=== PATIENT | male | born 1940 | race Caucasian/White ===

== ENCOUNTER → 2016-06-26 | Outpatient (CLI) | payer MEDICARE, OTHER ==
[~2016-06-26] MED LIST: DOXA1TAB34 PO; LISI-515 PO; LISI10TA3 PO
[2016-06-26 14:39] LABS: AUTOMATED NEUTROPHIL # 5.3 TH/MM3 (1.8-7.7); BASOPHIL % 0.3 % (0.0-2.0); EOSINOPHIL # 0.3 TH/MM3 (0-0.4); EOSINOPHIL % 3.7 % (0.0-4.0); HEMATOCRIT 42.6 % (39.0-51.0); HEMO FLAGS DIFF FINAL; LYMPH % 24.5 % (9.0-44.0); LYMPHOCYTE # 2.1 TH/MM3 (1.0-4.8); MEAN CELL VOLUME 88.9 FL (80.0-100.0); MEAN CORPUSCULAR HEMOGLOBIN 30.2 PG (27.0-34.0); MONO % 9.7 % (0.0-8.0); NEUT % 61.8 % (16.0-70.0); PLATELET COUNT 177 TH/MM3 (150-450); RED BLOOD COUNT 4.79 MIL/MM3 (4.50-5.90); RED CELL DISTRIBUTION WIDTH 14.1 % (11.6-17.2); WHITE BLOOD COUNT 8.6 TH/MM3 (4.0-11.0)
--- NOTE | 2016-06-27 17:12 | EKG ---
Date Performed: 06/26/2016 Time Performed: 13:12:08 PTAGE: 76 years EKG: Sinus rhythm INFERIOR MYOCARDIAL INFARCTION, PROBABLY OLD ABNORMAL ECG NO PREVIOUS TRACING DOCTOR: Bhupendra Gonzalez Interpretating Date/Time 06/27/2016 17:07:16
== END ==
LOC: CPRE 12:40
PROVIDERS: ATTEND Ophthalmology
DX: Z01.810 Encounter for preprocedural cardiovascular examination (principal); Z01.812 Encounter for preprocedural laboratory examination; H25.811 Combined forms of age-related cataract, right eye; R94.31 Abnormal electrocardiogram [ECG] [EKG]
CPT/HCPCS: 36415; 85025; 93005

== ENCOUNTER → 2016-07-17 | Day surgery (SDC) | payer MEDICARE, OTHER ==
--- NOTE | 2016-06-29 08:49 | MH ---
cc: FERMIN WHITLEY DATE OF ADMISSION: 07/17/2016 ADMISSION DIAGNOSIS Cataract, right eye. HISTORY OF PRESENT ILLNESS This 76-year-old white male is coming through [facility] for the purpose of a lens extraction of the right eye with intraocular lens implant under general anesthesia. He has noticed decreasing visual acuity interfering with his daily activities and elected to have the above procedure. His best corrected visual acuity is 20/50 -1 in the right eye and 20/40 -2 in the left. PAST MEDICAL HISTORY 1. The patient has a history of claustrophobia which is the reason for his general anesthesia. 2. Hypertension. 3. Kidney stones. PAST SURGICAL HISTORY 1. Lithotripsy. 2. Inguinal hernia repair on the right side. 3. Skin cancer on the right leg. MEDICATION Daily medications: 1. Doxazosin. 2. Lisinopril. 3. Sleeping pill. 4. Aspirin 81 mg. 5. Latanoprost eye drops for chronic open angle glaucoma. He does have a history of Flomax use in the past. ALLERGIES The patient has no known allergies. SOCIAL HISTORY He does not smoke and drinks one or two alcoholic beverages a couple of days a week. FAMILY HISTORY Family history is positive for father with possible glaucoma and mother with macular degeneration. REVIEW OF SYSTEMS HEAD: Patient denies severe headaches, dizziness or recent head injury. EARS: Patient denies hearing loss, ear pain, discharge or ringing in the ears. NOSE: Patient denies nasal discharge, obstruction or frequent colds. MOUTH AND THROAT: Patient denies soreness of the mouth or tongue, bleeding gums, trouble swallowing, changes in voice or sore throat. NECK: Patient denies neck pain or swelling, limitation of neck movement or neck injury. CARDIOPULMONARY SYSTEM: Patient denies shortness of breath, orthopnea, chronic cough, sputum production, hemoptysis, chest pain, wheezing, palpitations or light-headedness. GI SYSTEM: Patient denies poor appetite, nausea, vomiting, abdominal pain, ulcers, or change in bowel habits. The patient does have hemorrhoids. SYSTEM: The patient does have urinary frequency day and night. No dysuria, change in urine color. NERVOUS SYSTEM: Patient denies convulsions, vertigo, stroke, numbness or weakness. PHYSICAL EXAMINATION VITAL SIGNS: Blood pressure 112/64, pulse 88, respirations 20. HEAD: Normocephalic, atraumatic. NOSE: Without rhinorrhea. THROAT: Clear. NECK: Supple. CHEST: Clear. HEART: Regular rhythm. ABDOMEN: Without tenderness. EXTREMITIES: Without edema. NEUROLOGIC: Within normal limits. MENTAL STATUS: Within normal limits. EYE EXAMINATION: The patient's best corrected visual acuity is 20/50 -1 in the right eye and 20/40 -2 in the left. Visual lira are full to confrontation testing. Extraocular muscle exam reveals full versions with exophoria at distance and near. Pupils are 2.5 mm equal, round, reactive to light without afferent defect. Anterior segment examination reveals corneal arcus and there is dermatochalasis of the eyelid skin. There are nuclear sclerotic and cortical cataract changes bilaterally. Intraocular pressure was 23 in the right eye and 21 in the left by applanation tonometry. Dilated fundus exam revealed sharp disks with cup-to-disk ratio 0.35 bilaterally. There is parafoveal glistening in the macula area of both eyes. A posterior vitreous detachment is present bilaterally. IMPRESSION 1. Bilateral cataracts. 2. Chronic open angle glaucoma - moderate, both eyes. 3. Posterior vitreous detachment, both eyes. PLAN The plan is lens extraction of the right eye with intraocular lens implant under general anesthesia through [facility] [place]. General anesthesia will be used due to the patient's claustrophobia. We will use iris retractors in this patient whose pupil does not dilate adequately. The patient has been cleared medically. He has been counseled as to the risks, benefits and alternatives and elected to proceed. I feel that cataract surgery will improve the quality of life and activities of daily living in this patient. MD JONAS Mitchell/PANCHITO /7:54 AM /8:17 AM
[~2016-07-17] VITALS: Ht 177.8 cm; Wt 91.0 kg
[~2016-07-17] MED LIST changes: +ACETAMINOPHEN 500 MG CPLT ONE; +ACETYLCHOLINE CHL OPHT SOLN 1:100 2 ML VIAL ONE; +CYCLOPENTOLATE HCL 1% OPHT SOLN 2 ML BTL ONE; +DICLOFENAC SOD 0.1% OPHT SOLN 2.5 ML BTL ONE; +EPINEPHrine HCL (1:1000) 1 MG/ML VIAL ONE; +FAMOTIDINE 20 MG/2 ML VIAL ONE; +GATIFLOXACIN 0.5% OPHT SOLN 2.5 ML BTL ONE; -LISI10TA3 PO; +MIDAZOLAM HCL 2 MG/2 ML VIAL ONE; +ONDANSETRON HCL 4 MG/2 ML VIAL IV PUSH ONE; +PHENYLEPH/NS 1000 MCG/10 ML SYR IV ONE; +PHENYLEPHRINE HCL 10 MG/ML VIAL IV ONE; +PHENYLEPHRINE HCL 2.5% OPTH SOLN 2 ML BTL ONE; +PROPARACAINE HCL 0.5% OPHT SOLN 15 ML BTL ONE; +SODIUM CHLOR 0.9% 250 ML INJ 250 ML IV ONE; +SODIUM CHLORID 0.9% 500 ML INJ 500 ML IV ONE; +SODIUM CHLORID 0.9% 500 ML INJ 500 ML ONE; +TOBRAMYCIN/DEXAMETHASONE OPTH OINT 3.5 GM TUBE RIGHT EYE ONE; +TROPICAMIDE 1% OPHT SOLN 15 ML BTL ONE; +VISCOAT OPHT IRRIG SOLN 0.75 ML SYRINGE RIGHT EYE ONE; +acetaZOLAMIDE SEQUELS 500 MG SUSTAINED RELEASE CAP ONE; +ePHEDrine/NS 25 MG/5 ML SYR IV ONE
[2016-07-17 08:07] VITALS: BP 139/71; PULSE 60; RESP 18; TEMP 97.8; O2SAT 95
[2016-07-17] MEDS: PILOCARPINE HCL 2% OPHT SOLN 15 ML BTL ONE ×2 (10:01→10:20)
[2016-07-17] MEDS: TETRACAINE 0.5% OPTH SOLN 2 ML BTL ONE ×2 (10:06→10:20)
[2016-07-17 10:41] VITALS: TEMP 97.6
--- NOTE | 2016-07-17 10:57 | MP ---
cc: FERMIN CORDOVA M.D. DATE OF SURGERY: 07/17/2016 PREOPERATIVE DIAGNOSIS Cataract, right eye. POSTOPERATIVE DIAGNOSIS Cataract, right eye. OPERATION Extracapsular cataract extraction with posterior chamber intraocular lens implant by phacoemulsification, right eye. SURGEON Fermin Cordova M.D. ANESTHESIA Local. COMPLICATIONS None. INDICATIONS See history and physical previously dictated. OPERATIVE PROCEDURE The patient had adequate retrobulbar and eyelid blocks administered in the holding area and was brought to the operating room. The right eye was prepped and draped in the usual sterile ophthalmic manner. A lid speculum was inserted in the right eye. A 4-0 silk bridle suture was placed through the conjunctiva near the superior rectus muscle and it was tagged to the drape. A fornix-based conjunctival flap was prepared spanning approximately 5 mm in width. Hemostasis was obtained with wet-field cautery. A 3.5 mm groove was made 1 mm from the limbus and dissected up to the limbus in the form of a scleral pocket incision. A stab incision was then made at the 2 o'clock position. Viscoelastic was injected into the anterior chamber. In order to maintain an adequately dilated pupil, it was elected to use iris retractors in this case. Stab incisions were made at the 1 o'clock, 3 o'clock, 5 o'clock, 8 o'clock and 10 o'clock positions. Iris retractors were then inserted through the stab incisions in the peripheral cornea and positioned to enlarge the size of the pupil. The anterior chamber was entered with a 2.75 mm keratome through the scleral pocket incision. A 360 degree continuous curvilinear capsulorrhexis was then performed. Hydrodissection was utilized to divide the nucleus into inner and outer components and to separate the cortex from the capsule. Phacoemulsification was then utilized to remove the nucleus. The outer nuclear layer was removed with irrigation and aspiration and short bursts of ultrasound as necessary. The cortex was removed with the irrigation-aspiration handpiece. The posterior capsule was polished with the capsule polisher. Viscoelastic was injected into the capsular bag. The intraocular lens was inspected and found to be in good condition. The lens utilized was an Jose, model SA60AT with a power of +19.5 diopters. The lens was inserted into the capsular bag. The five iris retractors were removed. The viscoelastic in the anterior chamber was then removed with the irrigation-aspiration hand piece. Viscoelastic was also removed from beneath the intraocular lens. The anterior chamber was filled with Miochol-E through the stab incision and pressurized. The wound was checked for leaks at this pressure and normalized pressure and there were none. The 4-0 bridle suture was removed. The conjunctival flap was brought down over the wound and secured with cautery. Pilocarpine 2% eye drops were instilled topically. The lid speculum was removed. TobraDex ophthalmic ointment was applied. The eye was double patched and shielded. The patient tolerated the procedure well and left the Operating Room in satisfactory condition. MD JONAS Mitchell/BT /10:34 AM /10:56 AM
[2016-07-17 11:30] VITALS: BP 114/62; PULSE 71; RESP 14; O2SAT 100
== END | disposition home or self-care (01) ==
LOC: PHSDC 06:46
PROVIDERS: ATTEND Ophthalmology
DX: H25.13 Age-related nuclear cataract, bilateral (principal); F40.240 Claustrophobia; H40.1132 Primary open-angle glaucoma, bilateral, moderate stage; H43.813 Vitreous degeneration, bilateral; I10 Essential (primary) hypertension
CPT/HCPCS: 00142; 66984; J0171; J2250; J2370; J2405; J3010; J7040; J7050; V2632

== ENCOUNTER → 2016-10-25 | Outpatient (CLI) | payer MEDICARE, OTHER ==
[~2016-10-25] MED LIST changes: -ACETAMINOPHEN 500 MG CPLT ONE; -ACETYLCHOLINE CHL OPHT SOLN 1:100 2 ML VIAL ONE; -CYCLOPENTOLATE HCL 1% OPHT SOLN 2 ML BTL ONE; -DICLOFENAC SOD 0.1% OPHT SOLN 2.5 ML BTL ONE; -EPINEPHrine HCL (1:1000) 1 MG/ML VIAL ONE; -FAMOTIDINE 20 MG/2 ML VIAL ONE; -GATIFLOXACIN 0.5% OPHT SOLN 2.5 ML BTL ONE; -MIDAZOLAM HCL 2 MG/2 ML VIAL ONE; -ONDANSETRON HCL 4 MG/2 ML VIAL IV PUSH ONE; -PHENYLEPH/NS 1000 MCG/10 ML SYR IV ONE; -PHENYLEPHRINE HCL 10 MG/ML VIAL IV ONE; -PHENYLEPHRINE HCL 2.5% OPTH SOLN 2 ML BTL ONE; -PROPARACAINE HCL 0.5% OPHT SOLN 15 ML BTL ONE; -SODIUM CHLOR 0.9% 250 ML INJ 250 ML IV ONE; -SODIUM CHLORID 0.9% 500 ML INJ 500 ML IV ONE; -SODIUM CHLORID 0.9% 500 ML INJ 500 ML ONE; -TOBRAMYCIN/DEXAMETHASONE OPTH OINT 3.5 GM TUBE RIGHT EYE ONE; -TROPICAMIDE 1% OPHT SOLN 15 ML BTL ONE; -VISCOAT OPHT IRRIG SOLN 0.75 ML SYRINGE RIGHT EYE ONE; -acetaZOLAMIDE SEQUELS 500 MG SUSTAINED RELEASE CAP ONE; -ePHEDrine/NS 25 MG/5 ML SYR IV ONE
[2016-10-25 09:14] LABS: HEMATOCRIT 45.2 % (39.0-51.0); MEAN CELL VOLUME 90.2 FL (80.0-100.0); MEAN CORPUSCULAR HEMOGLOBIN 30.7 PG (27.0-34.0); PLATELET COUNT 167 TH/MM3 (150-450); RED BLOOD COUNT 5.01 MIL/MM3 (4.50-5.90); RED CELL DISTRIBUTION WIDTH 14.1 % (11.6-17.2); REVIEW FLAG FINAL; WHITE BLOOD COUNT 6.6 TH/MM3 (4.0-11.0)
[2016-10-25 09:36] LABS: ANION GAP 7 MEQ/L (5-15); AST (GOT) 16 U/L (15-37); BICARBONATE 28.9 MEQ/L (21.0-32.0); BLOOD UREA NITROGEN 15 MG/DL (7-18); CHLORIDE 106 MEQ/L (98-107); GLOMERULAR FILTRATION RATE 70 ML/MIN (>89); GLUCOSE,FASTING 91 MG/DL (74-99); POTASSIUM 4.1 MEQ/L (3.5-5.1); SODIUM (NA) 142 MEQ/L (136-145)
[2016-10-25 09:41] LABS: ALKALINE PHOSPHATASE 56 U/L (45-117); ALT (GPT) 30 U/L (12-78); HDL CHOLESTEROL 66.2 MG/DL (40.0-60.0); LDL CHOLESTEROL 112 MG/DL (0-99); LDL CHOLESTEROL DIRECT 103 MG/DL (0-99); TOTAL BILIRUBIN ADULT 0.6 MG/DL (0.2-1.0)
[2016-10-25 17:24] LABS: HEMOGLOBIN A1a 1.1 %; HEMOGLOBIN A1b 1.6 %; HEMOGLOBIN Ao 85.5 %; HEMOGLOBIN LA1C 1.8 %; HEMOGLOBIN P3 3.7 %
== END ==
LOC: PLAB 06:45
PROVIDERS: ATTEND Family Medicine
DX: E78.2 Mixed hyperlipidemia (principal); I10 Essential (primary) hypertension; R73.01 Impaired fasting glucose
CPT/HCPCS: 36415; 80053; 80061; 83036; 83721; 85027

== ENCOUNTER → 2017-01-01 | Outpatient (CLI) | payer MEDICARE, OTHER ==
[~2017-01-01] MED LIST changes: +ASPI325T PO; +VITA100T65 PO
[2017-01-01 12:23] LABS: AUTOMATED NEUTROPHIL # 4.4 TH/MM3 (1.8-7.7); BASOPHIL # 0.1 TH/MM3 (0-0.2); BASOPHIL % 1.1 % (0.0-2.0); EOSINOPHIL # 0.3 TH/MM3 (0-0.4); EOSINOPHIL % 4.2 % (0.0-4.0); HEMO FLAGS DIFF FINAL; LYMPH % 26.3 % (9.0-44.0); LYMPHOCYTE # 1.9 TH/MM3 (1.0-4.8); MEAN CELL VOLUME 89.9 FL (80.0-100.0); MEAN CORPUSCULAR HEMOGLOBIN 29.5 PG (27.0-34.0); MEAN CORPUSCULAR HGB CONC 32.8 % (32.0-36.0); MONO % 7.8 % (0.0-8.0); NEUT % 60.6 % (16.0-70.0); PLATELET COUNT 186 TH/MM3 (150-450); RED BLOOD COUNT 4.89 MIL/MM3 (4.50-5.90); RED CELL DISTRIBUTION WIDTH 13.8 % (11.6-17.2); WHITE BLOOD COUNT 7.3 TH/MM3 (4.0-11.0)
== END ==
LOC: PHPRE 11:47
PROVIDERS: ATTEND Ophthalmology
DX: Z01.812 Encounter for preprocedural laboratory examination (principal)
CPT/HCPCS: 36415; 85025

== ENCOUNTER → 2017-01-08 | Day surgery (SDC) | payer MEDICARE, OTHER ==
--- NOTE | 2017-01-01 15:54 | MH ---
cc: FERMIN WHITLEY DATE OF ADMISSION 01/08/2017 [facility] ADMISSION DIAGNOSIS Cataract left eye. HISTORY OF PRESENT ILLNESS This 76-year-old white male is coming through [facility] for the purpose of a lens extraction of the left eye with intraocular lens implant under general anesthesia. He has noticed decreasing visual acuity interfering his daily activities and elected to have the above procedure. He had a similar procedure on the right eye in June of this year and did well postoperatively and now is requesting cataract surgery for the left eye. His best corrected visual acuity is 20/20 -2 in the right eye and 20/40 -2 in the left eye in room light. PAST MEDICAL HISTORY The patient has a history of claustrophobia and that is the reason for his general anesthesia. He also has a history of hypertension and kidney stones. PAST SURGICAL HISTORY Surgical history includes: 1. Lithotripsy. 2. Inguinal hernia on the right side. 3. Skin cancer of the right leg. 4. A cyst twice in the left ear and under the left arm. 5. He also has had the cataract surgery of the right eye with intraocular lens implant in June of this year. MEDICATIONS Daily medications include: 1. Doxazosin. 2. Lisinopril. 3. 325 milligrams aspirin. 4. Vitamin E. 5. He takes Latanoprost eye drops at bedtime in both eyes for chronic open angle glaucoma. 6. Xanax at bedtime. 7. He also has a history of Flomax use for many years in the past. ALLERGIES NO KNOWN ALLERGIES. SOCIAL HISTORY The patient does not smoke and has one or two alcoholic beverages two days a week. FAMILY HISTORY Positive for mother with macular degeneration, father possibly with glaucoma. REVIEW OF SYSTEMS HEAD: Patient denies severe headaches, dizziness or recent head injury. EARS: Patient has hearing loss and wears hearing aids. Denies ear pain, discharge or ringing in the ears. NOSE: Patient denies nasal discharge, obstruction or frequent colds. MOUTH AND THROAT: Patient denies soreness of the mouth or tongue, bleeding gums, trouble swallowing, changes in voice or sore throat. NECK: Patient denies neck pain or swelling, limitation of neck movement or neck injury. CARDIOPULMONARY SYSTEM: Patient denies shortness of breath, orthopnea, chronic cough, sputum production, hemoptysis, chest pain, wheezing, palpitations or light-headedness. GI SYSTEM: Patient denies poor appetite, nausea, vomiting, abdominal pain, ulcers, or change in bowel habits. The patient occasionally gets hemorrhoids. SYSTEM: The patient gets up twice a night to urinate. The patient denies urinary frequency, dysuria, change in urine color. NERVOUS SYSTEM: Patient denies convulsions, vertigo, stroke, numbness or weakness. PHYSICAL EXAMINATION VITAL SIGNS: Blood pressure 122/68, pulse 72, respirations 24. HEAD: Normocephalic, atraumatic. NOSE: Without rhinorrhea. THROAT: Clear. NECK: Supple. CHEST: Clear. HEART: Regular rhythm. ABDOMEN: Without tenderness. EXTREMITIES: Without edema. NEUROLOGIC: Within normal limits. MENTAL STATUS: Within normal limits. EYE EXAMINATION The patient's best corrected visual acuity is 20/20 -2 in the right eye and 20/40 -2 in the left eye in room light. Visual lira are full to confrontation testing. Extraocular muscle exam reveals exophoria at distance and near. Pupils are 3 mm in the right eye 2.5 mm in the left, round and reactive to light without afferent defect. Anterior segment examination reveals corneal arcus present bilaterally. A posterior chamber intraocular lens is in place in the right eye. The dense nuclear sclerotic cataract with some cortical cataract change as well is present in the left eye. Intraocular pressure is 19 in the right eye and 20 in the left by applanation tonometry. Dilated fundus exam revealed sharp disks with cup-to-disk ratio 0.35 bilaterally. There is some parafoveal glistening in the macula area of each eye. A posterior vitreous detachment is present bilaterally. IMPRESSION 1. Cataract left eye. 2. Pseudophakia right eye. 3. Chronic open angle glaucoma - moderate both eyes. 4. Posterior vitreous detachment both eyes. 5. Mild epiretinal membrane macula, both eyes. PLAN The plan is lens extraction of the left eye with intraocular lens implant under general anesthesia through [facility]. We are using general anesthesia due to the patient's severe claustrophobia. Iris retractors will be used in this case as the patient's pupil does not dilate well and he has a history of Flomax use for years. The patient has been cleared medically. He has been counseled as to the risks, benefits and alternatives and elected to proceed. I feel that cataract surgery will improve the quality of life and activities of daily living in this patient. MD JONAS Mitchell/LEONEL /3:18 PM /3:29 PM
[~2017-01-08] VITALS: Ht 177.8 cm; Wt 91.0 kg
[~2017-01-08] MED LIST changes: +ACETYLCHOLINE CHL OPHT SOLN 1:100 2 ML VIAL ONE; +CHLORHEXIDINE GLUCONATE 2 % 1 PACK (2 CLOTHS) TOPICAL PRN; +EPINEPHrine HCL (1:1000) 1 MG/ML VIAL ONE; +FAMOTIDINE 20 MG/2 ML VIAL ONE; +INSULIN HUMAN REGULAR 1,000 UNITS/10 ML VIAL SQ PRN; +LACTATED RINGER'S 1000 ML IV PRN; +METOPROLOL TARTRATE 25 MG TAB PO PRN; +MIDAZOLAM HCL 2 MG/2 ML VIAL ONE; +POVIDONE IODINE 5% (ANTISEPSIS KIT) 4 APPLICATIONS EACH NARE PRN; +PROPARACAINE HCL 0.5% OPHT SOLN 15 ML BTL LEFT EYE ONE; +PROPOFOL 200 MG/20 ML AMP IV ONE; +SODIUM CHLORID 0.9% 500 ML IV PRN; +TETRACAINE 0.5% OPTH SOLN 4 ML BTL ONE; +TOBRAMYCIN/DEXAMETHASONE OPTH OINT 3.5 GM TUBE ONE; +VISCOAT OPHT IRRIG SOLN 0.75 ML SYRINGE ONE; +acetaZOLAMIDE SEQUELS 500 MG SUSTAINED RELEASE CAP ONE; +ePHEDrine/NS 25 MG/5 ML SYR IV ONE
[2017-01-08] MEDS: TROPICAMIDE 1% OPHT SOLN 15 ML BTL LEFT EYE SCH ×4 (08:40→08:49)
[2017-01-08] MEDS: DICLOFENAC SOD 0.1% OPHT SOLN 2.5 ML BTL LEFT EYE SCH ×4 (08:40→08:49)
[2017-01-08] MEDS: GATIFLOXACIN 0.5% OPHT SOLN 2.5 ML BTL LEFT EYE SCH ×4 (08:40→08:49)
[2017-01-08] MEDS: PHENYLEPHRINE HCL 2.5% OPTH SOLN 2 ML BTL LEFT EYE SCH ×4 (08:40→08:49)
[2017-01-08] MEDS: CYCLOPENTOLATE HCL 1% OPHT SOLN 2 ML BTL LEFT EYE SCH ×4 (08:40→08:49)
[2017-01-08] MEDS: PILOCARPINE HCL 2% OPHT SOLN 15 ML BTL ONE (11:16)
[2017-01-08 11:25] VITALS: PULSE 78
[2017-01-08 11:45] VITALS: PULSE 61; TEMP 97.7
[2017-01-08 12:10] VITALS: BP 136/64; PULSE 50; RESP 16; O2SAT 97
--- NOTE | 2017-01-08 12:44 | MP ---
cc: FERMIN CORDOVA DATE OF SURGERY: 01/08/2017 PREOPERATIVE DIAGNOSIS Cataract, left eye. POSTOPERATIVE DIAGNOSIS Cataract, left eye. OPERATION Extracapsular cataract extraction with posterior chamber intraocular lens implant by phacoemulsification, left eye. SURGEON Fermin Cordova M.D. ANESTHESIA General. COMPLICATIONS None. INDICATIONS See history and physical previously dictated. OPERATIVE PROCEDURE After the patient had obtained adequate general anesthesia, the left eye was prepped and draped in the usual sterile ophthalmic manner. A lid speculum was inserted in the left eye. A 4-0 silk bridle suture was placed through the conjunctiva near the superior rectus muscle and it was tagged to the drape. A fornix-based conjunctival flap was prepared spanning approximately 5 mm in width. Hemostasis was obtained with wet-field cautery. A 3.5 mm groove was made 1 mm from the limbus and dissected up to the limbus in the form of a scleral pocket incision. A stab incision was then made at the 2 o'clock position. Viscoelastic was injected into the anterior chamber. In order to maintain an adequately dilated pupil, it was elected to use iris retractors in this case. Stab incisions were made at the 1 o'clock, 3 o'clock, 5 o'clock, 8 o'clock and 10 o'clock positions. Iris retractors were then inserted through the stab incisions in the peripheral cornea and positioned to enlarge the size of the pupil. The anterior chamber was entered with a 2.75 mm keratome through the scleral pocket incision. A 360 degree continuous curvilinear capsulorrhexis was then performed. Hydrodissection was utilized to divide the nucleus into inner and outer components and to separate the cortex from the capsule. Phacoemulsification was then utilized to remove the nucleus. The outer nuclear layer was removed with irrigation and aspiration and short bursts of ultrasound as necessary. The cortex was removed with the irrigation-aspiration handpiece. The posterior capsule was polished with the capsule polisher. Viscoelastic was injected into the capsular bag. The intraocular lens was inspected and found to be in good condition. The lens utilized was an Jose, model SA60AT with a power of +19.5 diopters. The lens was inserted into the capsular bag. The five iris retractors were removed. The viscoelastic in the anterior chamber was then removed with the irrigation-aspiration hand piece. Viscoelastic was also removed from beneath the intraocular lens. The anterior chamber was filled with Miochol-E through the stab incision and pressurized. The wound was checked for leaks at this pressure and normalized pressure and there were none. The 4-0 bridle suture was removed. The conjunctival flap was brought down over the wound and secured with cautery. Pilocarpine 2% eye drops were instilled topically. The lid speculum was removed. TobraDex ophthalmic ointment was applied. The eye was double patched and shielded. The patient tolerated the procedure well and left the Operating Room in satisfactory condition. MD JONAS Mitchell/MARY /11:39 AM /12:39 PM
== END | disposition home or self-care (01) ==
LOC: PHSDC 07:51
PROVIDERS: ATTEND Ophthalmology
DX: H26.9 Unspecified cataract (principal); H43.813 Vitreous degeneration, bilateral; H40.10X0 Unspecified open-angle glaucoma, stage unspecified; I10 Essential (primary) hypertension; Z79.82 Long term (current) use of aspirin; Z85.828 Personal history of other malignant neoplasm of skin; Z87.442 Personal history of urinary calculi
CPT/HCPCS: 00142; 66984; J0171; J2250; J7040; V2632

== ENCOUNTER → 2017-04-19 | Outpatient (CLI) | payer MEDICARE, OTHER ==
[~2017-04-19] MED LIST changes: -ACETYLCHOLINE CHL OPHT SOLN 1:100 2 ML VIAL ONE; +ASPI-183 PO; -ASPI325T PO; -CHLORHEXIDINE GLUCONATE 2 % 1 PACK (2 CLOTHS) TOPICAL PRN; -EPINEPHrine HCL (1:1000) 1 MG/ML VIAL ONE; -FAMOTIDINE 20 MG/2 ML VIAL ONE; -INSULIN HUMAN REGULAR 1,000 UNITS/10 ML VIAL SQ PRN; -LACTATED RINGER'S 1000 ML IV PRN; -METOPROLOL TARTRATE 25 MG TAB PO PRN; -MIDAZOLAM HCL 2 MG/2 ML VIAL ONE; -POVIDONE IODINE 5% (ANTISEPSIS KIT) 4 APPLICATIONS EACH NARE PRN; -PROPARACAINE HCL 0.5% OPHT SOLN 15 ML BTL LEFT EYE ONE; -PROPOFOL 200 MG/20 ML AMP IV ONE; -SODIUM CHLORID 0.9% 500 ML IV PRN; -TETRACAINE 0.5% OPTH SOLN 4 ML BTL ONE; -TOBRAMYCIN/DEXAMETHASONE OPTH OINT 3.5 GM TUBE ONE; -VISCOAT OPHT IRRIG SOLN 0.75 ML SYRINGE ONE; -acetaZOLAMIDE SEQUELS 500 MG SUSTAINED RELEASE CAP ONE; -ePHEDrine/NS 25 MG/5 ML SYR IV ONE
[2017-04-19 09:43] LABS: MEAN CELL VOLUME 90.3 FL (80.0-100.0); MEAN CORPUSCULAR HEMOGLOBIN 30.9 PG (27.0-34.0); MEAN CORPUSCULAR HGB CONC 34.2 % (32.0-36.0); PLATELET COUNT 149 TH/MM3 (150-450); RED BLOOD COUNT 4.65 MIL/MM3 (4.50-5.90); RED CELL DISTRIBUTION WIDTH 14.3 % (11.6-17.2); REVIEW FLAG FINAL; WHITE BLOOD COUNT 6.8 TH/MM3 (4.0-11.0)
[2017-04-19 09:49] LABS: ANION GAP 8 MEQ/L (5-15); AST (GOT) 18 U/L (15-37); BICARBONATE 26.2 MEQ/L (21.0-32.0); CHLORIDE 107 MEQ/L (98-107); GLOMERULAR FILTRATION RATE 76 ML/MIN (>89); GLUCOSE,FASTING 95 MG/DL (74-99); POTASSIUM 3.9 MEQ/L (3.5-5.1); SODIUM (NA) 141 MEQ/L (136-145)
[2017-04-19 09:56] LABS: ALKALINE PHOSPHATASE 56 U/L (45-117); ALT (GPT) 24 U/L (12-78); BLOOD UREA NITROGEN 17 MG/DL (7-18); HDL CHOLESTEROL 58.4 MG/DL (40.0-60.0); LDL CHOLESTEROL 86 MG/DL (0-99); LDL CHOLESTEROL DIRECT 101 MG/DL (0-99); TOTAL BILIRUBIN ADULT 0.6 MG/DL (0.2-1.0)
[2017-04-19 16:38] LABS: HEMOGLOBIN A1a 1.5 %; HEMOGLOBIN A1b 1.6 %; HEMOGLOBIN Ao 85.1 %; HEMOGLOBIN P3 3.8 %
== END ==
LOC: PLAB 07:08
PROVIDERS: ATTEND Family Medicine
DX: R53.83 Other fatigue (principal); E78.2 Mixed hyperlipidemia; I10 Essential (primary) hypertension; R73.01 Impaired fasting glucose
CPT/HCPCS: 36415; 80053; 80061; 83036; 83721; 84443; 85027

== ENCOUNTER → 2017-10-17 | Outpatient (CLI) | payer MEDICARE, OTHER ==
[2017-10-17 10:15] LABS: HEMATOCRIT 43.2 % (39.0-51.0); HEMOGLOBIN 14.6 GM/DL (13.0-17.0); MEAN CELL VOLUME 90.9 FL (80.0-100.0); MEAN CORPUSCULAR HEMOGLOBIN 30.6 PG (27.0-34.0); MEAN CORPUSCULAR HGB CONC 33.7 % (32.0-36.0); MEAN PLATELET VOLUME 9.1 FL (7.0-11.0); PLATELET COUNT 156 TH/MM3 (150-450); RED BLOOD COUNT 4.75 MIL/MM3 (4.50-5.90); RED CELL DISTRIBUTION WIDTH 14.5 % (11.6-17.2)
[2017-10-17 10:22] LABS: ALBUMIN 3.8 GM/DL (3.4-5.0); AST (GOT) 19 U/L (15-37); BLOOD UREA NITROGEN 15 MG/DL (7-18); CALCIUM 9.1 MG/DL (8.5-10.1); CHLORIDE 108 MEQ/L (98-107); CHOLESTEROL 149 MG/DL (120-200); CREATININE 1.12 MG/DL (0.60-1.30); GLOMERULAR FILTRATION RATE 64 ML/MIN (>89); GLUCOSE,FASTING 90 MG/DL (74-99); SODIUM (NA) 143 MEQ/L (136-145)
[2017-10-17 10:28] LABS: ALKALINE PHOSPHATASE 53 U/L (45-117); ALT (GPT) 29 U/L (12-78); CHOLESTEROL/ HDL RATIO 2.87 RATIO; HDL CHOLESTEROL 51.8 MG/DL (40.0-60.0); LDL CHOLESTEROL 85 MG/DL (0-99); LDL CHOLESTEROL DIRECT 104 MG/DL (0-99); TOTAL BILIRUBIN ADULT 0.6 MG/DL (0.2-1.0); TOTAL PROTEIN 6.6 GM/DL (6.4-8.2); TRIGLYCERIDES 59 MG/DL (42-150)
== END ==
LOC: PLAB 07:06
PROVIDERS: ATTEND Family Medicine
DX: E78.2 Mixed hyperlipidemia (principal); I10 Essential (primary) hypertension
CPT/HCPCS: 36415; 80053; 80061; 83721; 85027